=== PATIENT | male | born 1960 | race Caucasian/White ===

== ENCOUNTER 2021-05-15 20:15 | Emergency (ER) | payer SELFPAY ==
[2021-05-15 20:40] LABS: BASO # 0.06 (0.02-0.10); EOS # 0.31 (0.04-0.40); EOS % 2.5 % (0.0-4.0); HEMATOCRIT 45.9 % (42.0-52.0); HEMOGLOBIN 15.3 g/dL (13.5-18.0); LYMPH# 3.97 (1.50-4.00); MEAN CELL VOLUME 86 fl (78-100); MEAN CORPUSCULAR HEMOGLOBIN 29 pg (27-31); MEAN CORPUSCULAR HGB CONC 33 g/dL (33-37); MEAN PLATELET VOLUME 9.5 fl (7.4-10.4); MONO # 1.11 (0.20-0.80); NEU # 6.72 (1.40-6.50); PLATELET COUNT 356 K/mm3 (130-400); RED BLOOD COUNT 5.37 M/mm3 (4.20-5.60); RED CELL DISTRIBUTION WIDTH 12.9 % (11.5-14.5); WHITE BLOOD COUNT 12.2 K/mm3 (4.8-10.8)
[2021-05-15 20:48] LABS: ALBUMIN 3.7 g/dL (3.5-5.0)
[2021-05-15 20:49] LABS: POTASSIUM 3.4 mmol/L (3.5-5.1)
[2021-05-15 20:50] LABS: CALCIUM 8.9 mg/dL (8.3-10.5)
[2021-05-15 20:51] LABS: TOTAL PROTEIN 7.2 g/dL (6.4-8.3)
[2021-05-15 20:53] LABS: TOTAL BILIRUBIN 0.3 mg/dL (0.2-1.2)
[2021-05-15 22:15] VITALS: BP 150/93
[2021-05-15 23:12] LABS: PH-URINE 6.5 (5.0 - 8.0); URINE APPEARANCE CLEAR; URINE BILIRUBIN NEGATIVE (NEGATIVE); URINE BLOOD NEGATIVE (NEGATIVE); URINE COLOR YELLOW; URINE GLUCOSE NEGATIVE (NEGATIVE); URINE KETONE NEGATIVE (NEGATIVE); URINE LEUKOCYTE ESTERASE NEGATIVE (NEGATIVE); URINE NITRATE NEGATIVE (NEGATIVE); URINE PROTEIN(semi-quant) NEGATIVE (NEGATIVE); URINE UROBILINOGEN NORMAL (NORMAL); URINE WBC 0 /hpf (0-3)
== END 2021-05-15 22:15 | disposition home or self-care (01) ==
LOC: ED 20:15
PROVIDERS: Family Medicine
DX: R53.81 Other malaise (principal); R53.83 Other fatigue; M25.512 Pain in left shoulder; I10 Essential (primary) hypertension
CPT/HCPCS: J7030